=== PATIENT | female | born 1995 | race Caucasian/White ===

== ENCOUNTER 2018-11-20 15:45 | Emergency (ER) | payer BC, MEDICAID, OTHER ==
--- NOTE | 2018-11-20 16:46 | EDM.PDOC ---
ED HPI GENERAL MEDICAL PROBLEM - General Chief Complaint: Skin Complaint Stated Complaint: INFECTION Time Seen by Provider: 11/20/18 16:30 Source of Information: Reports: Patient, Family History Limitations: Reports: No Limitations - History of Present Illness INITIAL COMMENTS - FREE TEXT/NARRATIVE: 22-year-old female with a persistent lesion on the arch of her left foot which is become more inflamed over the past 1-2 days with some erythema. She also has an inflamed patches of eczema on the medial aspect of the left ankle. Inflammatory skin lesions such as eczema have been a chronic problem for her. Onset: Gradual Duration: Week(s): (Patient has been present for 4-5 weeks, erythema only for the past day) Location: Reports: Lower Extremity, Left Associated Symptoms: Reports: No Other Symptoms - Related Data Allergies Allergy/AdvReac Type Severity Reaction Status Date / Time No Known Allergies Allergy Verified 11/20/18 16:21 Home Meds: Home Meds Betamethasone/Propylene Glyc [Betamethasone DP Aug 0.05%] 11/20/18 [History] Levonorgestrel-Ethin Estradiol [Falmina-28 Tablet] 11/20/18 [History] Past Medical History - Past Health History Medical/Surgical History: Denies Medical/Surgical History Social & Family History - Tobacco Use Smoking Status *Q: Never Smoker ED ROS GENERAL - Review of Systems Review Of Systems: See Below Constitutional: Denies: Fever, Chills Respiratory: Denies: Shortness of Breath Cardiovascular: Denies: Chest Pain GI/Abdominal: Denies: Nausea, Vomiting Psychiatric: Reports: No Symptoms ED EXAM, SKIN/RASH Exam: See Below Exam Limited By: No Limitations General Appearance: Alert, No Apparent Distress Respiratory/Chest: No Respiratory Distress Extremities: Other (Exam is otherwise limited to the left lower extremity. She has several patches of inflamed erythematous lesions on the medial aspect of the left ankle, and around 1.5 cm dry scaly lesion in the arch of the left foot. There is some cellulitis like erythema developing medial extending from the arch lesion to the ankle. It is not warm to touch.). No: Pedal Edema Course - Vital Signs Last Recorded V/S: Last Vital Signs Temp 97.4 F 11/20/18 16:27 Pulse 91 11/20/18 16:27 Resp 20 11/20/18 16:27 BP 149/83 H 11/20/18 16:27 Pulse Ox 99 11/20/18 16:27 - Re-Assessments/Exams Free Text/Narrative Re-Assessment/Exam: 11/20/18 16:48 This patient has chronic eczematous patches that appear to be becoming infected , early cellulitis. She'll be placed on cephalexin 500 mg 3 times a day for the next 7 days, and can apply some topical steroid to the lesions while on the antibiotic. 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 Departure - Departure Time of Disposition: 16:56 Disposition: Home, Self-Care 01 Clinical Impression: Cellulitis Qualifiers: Site of cellulitis: extremity Site of cellulitis of extremity: lower extremity Laterality: left Qualified Code(s): L03.116 - Cellulitis of left lower limb - Discharge Information Instructions: Cellulitis, Adult Referrals: PCP,None [Primary Care Provider] - Forms: ED Department Discharge Care Plan Goals: Take antibiotic until gone, topical steroids are appropriate while on the antibiotic. Recheck late next week if not improving satisfactorily. Return sooner if worsening.
== END 2018-11-20 16:56 | disposition home or self-care (01) ==
LOC: JP.ED 15:45
DX: L03.116 Cellulitis of left lower limb (principal)
CPT/HCPCS: 99283